=== PATIENT | male | born 1950 | race Caucasian/White ===

== ENCOUNTER 2022-03-11 10:23 | Outpatient (REF) | payer MEDICARE, SELFPAY ==
[2022-03-16 17:13] LABS: Testosterone, Total 458 ng/dL (250-1100)
== END 2022-03-11 10:24 | disposition home or self-care (01) ==
LOC: HO.MANLDS 10:23
PROVIDERS: Visit Provider Internal Medicine
DX: N52.9 Male erectile dysfunction, unspecified (principal)
CPT/HCPCS: 36415; 84402; 84403